=== PATIENT | female | born 1975 | race Caucasian/White ===

== ENCOUNTER 2017-04-30 11:19 | Emergency (ER) | payer OTHER ==
[~2017-04-30] VITALS: Ht 170.2 cm; Wt 108.9 kg
[2017-04-30] MEDS ORDERED: IBUPROFEN 800800 MG PO (13:01)
[2017-04-30] MEDS ORDERED: NORCO 5-325 TA1 EACH PO (13:01)
[2017-04-30] MEDS ORDERED: CYCLOBENZAPRINE10 MG PO (13:01)
[2017-04-30 13:10] VITALS: BP 159/85
== END 2017-04-30 13:12 | disposition home or self-care (01) ==
LOC: M.ERS 11:19
DX: S39.012A Strain of muscle, fascia and tendon of lower back, initial encounter (principal); I10 Essential (primary) hypertension; F17.200 Nicotine dependence, unspecified, uncomplicated; X58.XXXA Exposure to other specified factors, initial encounter; Y93.89 Activity, other specified; Y92.89 Other specified places as the place of occurrence of the external cause; Y99.8 Other external cause status